=== PATIENT | female | born 1955 | race Caucasian/White ===

== ENCOUNTER 2018-09-21 08:54 | Outpatient (CLI) | payer OTHER ==
[~2018-09-21 08:54] MED LIST: ALBU8.5H8 IH; CHOL100010 PO; ESTR2TAB PO; FLUO20CA39 PO; LEVO88TA28 PO; LISI-644 PO
== END 2018-09-21 23:59 | disposition home or self-care (01) ==
LOC: RAD 08:54
PROVIDERS: ATTEND Orthopaedic Surgery
DX: S83.411A Sprain of medial collateral ligament of right knee, initial encounter (principal); M71.21 Synovial cyst of popliteal space [Baker], right knee; M25.461 Effusion, right knee; I10 Essential (primary) hypertension; X58.XXXA Exposure to other specified factors, initial encounter; Y93.89 Activity, other specified; Y92.89 Other specified places as the place of occurrence of the external cause; Y99.8 Other external cause status
CPT/HCPCS: 73721

== ENCOUNTER 2018-12-01 10:48 | Inpatient (IN) | payer OTHER ==
[2018-11-23 16:13] LABS: BASOPHILS # (AUTO) 0.1 X10'3 (0-0.2); BASOPHILS % (AUTO) 0.6 % (0-1); EOSINOPHILS # (AUTO) 0.5 X10'3 (0-0.9); EOSINOPHILS % (AUTO) 5.3 % (0-6); LYMPHOCYTES # (AUTO) 2.6 X10'3 (1.1-4.8); LYMPHOCYTES % (AUTO) 27.8 % (21-51); MEAN CORPUSCULAR HEMOGLOBIN 29.1 PG (27.0-31.0); MEAN CORPUSCULAR HGB CONC 33.2 g/dL (33.0-36.5); MEAN CORPUSCULAR VOLUME 87.8 FL (78-98); MEAN PLATELET VOLUME 7.9 FL (7.4-10.4); MONOCYTES # (AUTO) 0.6 X10'3 (0-0.9); MONOCYTES % (AUTO) 6.7 % (2-12); NEUTROPHILS # (AUTO) 5.7 X10'3 (1.8-7.7); NEUTROPHILS % (AUTO) 59.6 % (42-75); PRE OP HEMOGLOBIN 13.6 g/dL (12.0-16.0); PRE OP PLATELET COUNT 388 X10'3 (140-440); RED BLOOD COUNT 4.67 X10'6 (4.20-5.60)
[2018-11-23 16:30] LABS: ALBUMIN 3.2 G/DL (3.4-5.0); ALBUMIN/GLOBULIN RATIO 0.9 (1.1-1.5); ALKALINE PHOSPHATASE 89 IU/L (46-116); BLOOD UREA NITROGEN 16 MG/DL (7-18); BUN/CREATININE RATIO 18.2 (6.6-38.0); CALCIUM 10.2 MG/DL (8.5-10.1); CHLORIDE 105 MMOL/L (99-107); CREATININE 0.88 MG/DL (0.40-0.90); PRE OP ALT 20 U/L (30-65); PRE OP ANION GAP 8 (8-16); PRE OP AST 12 U/L (10-37); PRE OP BILIRUB, TOTAL 0.1 MG/DL (0.0-1.0); PRE OP GLUCOSE 94 MG/DL (70-104); PRE OP POTASSIUM 3.6 MMOL/L (3.4-5.1); PRE OP SODIUM 139 MMOL/L (135-145); TOTAL CARBON DIOXIDE 25.7 MMOL/L (24-32); TOTAL PROTEIN 6.7 G/DL (6.4-8.2); eGFR 65 ML/MIN
[~2018-12-01] VITALS: Ht 157.5 cm; Wt 101.0 kg
[~2018-12-01 10:48] MED LIST changes: -ALBU8.5H8 IH; +BUPR300T53 PO; -CHOL100010 PO; -FLUO20CA39 PO; +acetaminophen 325mg tablet PO ONE; +cefazolin/dext.iso 2gm/100 ML IV ONE; +famotidine 20mg tablet PO ONE; +gabapentin 300mg capsule PO ONE; +metoclopramide 5 mg/ml inj IV ONE; +oxyCODONE SR 10mg (sust. release) tab -2 tabs (20mg) PO ONE; +ringers solution, lacted 1,000 ML IV SCH; +tranexamic acid inj. 1,000 MG in normal saline 100 ML IV ONE; +vancomycin inj 1,500 MG in normal saline 300ml IV soln IV ONE
[2018-12-01] MEDS ORDERED: LIDOcaine 1% (10mg/ml) 2ml vial ONE (11:24)
[2018-12-01] MEDS ORDERED: ceFAZolin 1000mg inj ONE (13:07)
[2018-12-01] MEDS ORDERED: vancomycin 1,000mg inj ONE (13:07)
[2018-12-01 13:44] VITALS: BP 139/85
[2018-12-01 13:51] VITALS: BP 139/85
== END 2018-12-01 14:00 | disposition home or self-care (01) | DRG 554 ==
LOC: PAS IN 10:48 → EDSTATUS 13:00
PROVIDERS: ADMIT Orthopaedic Surgery; ATTEND Orthopaedic Surgery
DX: M17.12 Unilateral primary osteoarthritis, left knee (principal); Z53.8 Procedure and treatment not carried out for other reasons
CPT/HCPCS: 36415; 80053; 82948; 84443; 85025; 93005; J0690; J2765; J3370; J3490; J7030; J7120

== ENCOUNTER 2019-06-10 14:05 | Emergency (ER) | payer OTHER ==
[~2019-06-10] VITALS: Ht 157.5 cm; Wt 100.0 kg
[~2019-06-10 14:05] MED LIST changes: -acetaminophen 325mg tablet PO ONE; -cefazolin/dext.iso 2gm/100 ML IV ONE; -famotidine 20mg tablet PO ONE; -gabapentin 300mg capsule PO ONE; -metoclopramide 5 mg/ml inj IV ONE; -oxyCODONE SR 10mg (sust. release) tab -2 tabs (20mg) PO ONE; -ringers solution, lacted 1,000 ML IV SCH; -tranexamic acid inj. 1,000 MG in normal saline 100 ML IV ONE; -vancomycin inj 1,500 MG in normal saline 300ml IV soln IV ONE
[2019-06-10 14:14] VITALS: BP 125/80
[2019-06-10] MEDS ORDERED: LIDOcaine 5% patch TP ONE (14:35)
[2019-06-10] MEDS ORDERED: acetaminophen 325mg tablet PO ONE (14:35)
[2019-06-10] MEDS ORDERED: OXYC-145 PO (14:58)
[2019-06-10] MEDS ORDERED: CYCL-1 PO (14:58)
== END 2019-06-10 15:15 | disposition home or self-care (01) ==
LOC: ER 14:06
DX: M54.5 Low back pain (principal); G89.29 Other chronic pain; E78.00 Pure hypercholesterolemia, unspecified; I10 Essential (primary) hypertension; F41.9 Anxiety disorder, unspecified; F32.9 Major depressive disorder, single episode, unspecified; Z90.710 Acquired absence of both cervix and uterus; Z98.890 Other specified postprocedural states; Z88.2 Allergy status to sulfonamides; Z88.5 Allergy status to narcotic agent; Z79.899 Other long term (current) drug therapy; W07.XXXA Fall from chair, initial encounter; Y93.89 Activity, other specified; Y92.89 Other specified places as the place of occurrence of the external cause; Y99.8 Other external cause status
CPT/HCPCS: 72100; 99284

== ENCOUNTER 2019-10-18 03:52 | Emergency (ER) | payer OTHER ==
[~2019-10-18] VITALS: Ht 157.5 cm; Wt 90.9 kg
[~2019-10-18 03:52] MED LIST changes: +CYCL-1 PO; +OXYC-145 PO
[2019-10-18 03:59] VITALS: BP 137/60
[2019-10-18] MEDS ORDERED: ipratropium/albuterol 3ml nebule NEB ONE (04:00)
[2019-10-18] MEDS ORDERED: PRED20TA PO (04:10)
[2019-10-18] MEDS ORDERED: predniSONE 20 mg tablet PO ONE (04:10)
== END 2019-10-18 04:41 | disposition home or self-care (01) ==
LOC: ER 03:53
DX: J40 Bronchitis, not specified as acute or chronic (principal); E78.00 Pure hypercholesterolemia, unspecified; I10 Essential (primary) hypertension; G89.29 Other chronic pain; Z98.890 Other specified postprocedural states; Z90.710 Acquired absence of both cervix and uterus; Z88.6 Allergy status to analgesic agent; Z88.2 Allergy status to sulfonamides; Z88.5 Allergy status to narcotic agent; Z79.899 Other long term (current) drug therapy
CPT/HCPCS: 94640; 99284; J7512; 94760

== ENCOUNTER 2019-11-22 09:19 | Outpatient (CLI) | payer OTHER ==
[2019-11-22 10:28] LABS: BASOPHILS % (AUTO) 0.3 % (0-1); EOSINOPHILS # (AUTO) 0.2 X10'3 (0-0.9); EOSINOPHILS % (AUTO) 2.8 % (0-6); HEMATOCRIT 37.5 % (35.0-45.0); HEMOGLOBIN 12.5 g/dl (12.0-16.0); LYMPHOCYTES # (AUTO) 3.2 X10'3 (1.1-4.8); LYMPHOCYTES % (AUTO) 44.1 % (21-51); MEAN CORPUSCULAR HEMOGLOBIN 28.6 PG (27.0-31.0); MEAN CORPUSCULAR HGB CONC 33.3 g/dL (33.0-36.5); MEAN CORPUSCULAR VOLUME 85.8 FL (78-98); MEAN PLATELET VOLUME 7.4 FL (7.4-10.4); MONOCYTES # (AUTO) 0.5 X10'3 (0-0.9); MONOCYTES % (AUTO) 6.4 % (2-12); NEUTROPHILS # (AUTO) 3.4 X10'3 (1.8-7.7); NEUTROPHILS % (AUTO) 46.4 % (42-75); PLATELET COUNT 328 X10'3 (140-440); RED BLOOD COUNT 4.37 X10'6 (4.20-5.60); RED CELL DISTRIBUTION WIDTH 15.3 % (11.5-14.5); WHITE BLOOD COUNT 7.2 X10'3 (4.5-11.0)
[2019-11-22 10:48] LABS: ALANINE AMINOTRANSFERASE 19 U/L (12-78); ALBUMIN 3.1 G/DL (3.4-5.0); ALBUMIN/GLOBULIN RATIO 0.9 (1.1-1.5); ALKALINE PHOSPHATASE 82 IU/L (46-116); ANION GAP 5 (8-16); ASPARTATE AMINO TRANSFERASE 16 U/L (10-37); BILIRUBIN,TOTAL 0.2 MG/DL (0.1-1.0); BLOOD UREA NITROGEN 17 MG/DL (7-18); BUN/CREATININE RATIO 20.5 (6.6-38.0); CALCIUM 9.3 MG/DL (8.5-10.1); CHLORIDE 107 MMOL/L (99-107); CREATININE 0.83 MG/DL (0.40-0.90); GLUCOSE 90 MG/DL (70-104); POTASSIUM 3.7 MMOL/L (3.5-5.1); SODIUM 140 MMOL/L (135-145); TOTAL CARBON DIOXIDE 27.7 MMOL/L (24-32); TOTAL PROTEIN 6.5 G/DL (6.4-8.2); eGFR 69 ML/MIN
== END 2019-11-22 23:59 | disposition home or self-care (01) ==
LOC: LAB 09:19
DX: J90 Pleural effusion, not elsewhere classified (principal)
CPT/HCPCS: 36415; 71046; 80053; 85025; 87502; 87503

== ENCOUNTER 2019-12-19 09:24 | Outpatient (CLI) | payer OTHER | END 2019-12-19 23:59 | disposition home or self-care (01) | LOC: CARD DIAG 09:24 | DX: Z01.810 Encounter for preprocedural cardiovascular examination (principal); R06.02 Shortness of breath; R07.9 Chest pain, unspecified | CPT/HCPCS: 93005; 93306 ==

== ENCOUNTER 2020-06-29 08:50 | Emergency (ER) | payer BC ==
[~2020-06-29] VITALS: Ht 157.5 cm; Wt 90.9 kg
[2020-06-29] MEDS ORDERED: normal saline 1000ML IV soln IV ONE (09:10)
[2020-06-29] MEDS ORDERED: ipratropium/albuterol 3ml nebule NEB ONE (09:10)
[2020-06-29] MEDS ORDERED: methylPREDNISolone sod succ 125mg/2ml vial IV ONE (09:10)
[2020-06-29 09:58] LABS: BASOPHILS # (AUTO) 0.1 X10'3 (0-0.2); EOSINOPHILS # (AUTO) 0.1 X10'3 (0-0.9); EOSINOPHILS % (AUTO) 1.4 % (0-6); HEMATOCRIT 41.3 % (35.0-45.0); HEMOGLOBIN 14.3 g/dl (12.0-16.0); LYMPHOCYTES # (AUTO) 2.5 X10'3 (1.1-4.8); LYMPHOCYTES % (AUTO) 25.6 % (21-51); MEAN CORPUSCULAR HEMOGLOBIN 30.2 PG (27.0-31.0); MEAN CORPUSCULAR HGB CONC 34.6 g/dL (33.0-36.5); MEAN CORPUSCULAR VOLUME 87.1 FL (78-98); MEAN PLATELET VOLUME 8.4 FL (7.4-10.4); MONOCYTES # (AUTO) 1.1 X10'3 (0-0.9); MONOCYTES % (AUTO) 10.8 % (2-12); NEUTROPHILS % (AUTO) 61.2 % (42-75); PLATELET COUNT 376 X10'3 (140-440); RED BLOOD COUNT 4.75 X10'6 (4.20-5.60); RED CELL DISTRIBUTION WIDTH 13.4 % (11.5-14.5); WHITE BLOOD COUNT 9.8 X10'3 (4.5-11.0)
[2020-06-29 11:37] VITALS: BP 149/79
[2020-06-29 11:55] LABS: ALANINE AMINOTRANSFERASE 19 U/L (12-78); ALBUMIN 3.4 G/DL (3.4-5.0); ALBUMIN/GLOBULIN RATIO 0.9 (1.1-1.5); ALKALINE PHOSPHATASE 108 IU/L (46-116); ANION GAP 9 (8-16); ASPARTATE AMINO TRANSFERASE 14 U/L (10-37); BILIRUBIN,TOTAL 0.3 MG/DL (0.1-1.0); BLOOD UREA NITROGEN 7 MG/DL (7-18); BUN/CREATININE RATIO 7.5 (6.6-38.0); CALCIUM 9.4 MG/DL (8.5-10.1); CHLORIDE 105 MMOL/L (99-107); CREATININE 0.93 MG/DL (0.40-0.90); GLUCOSE 98 MG/DL (70-104); POTASSIUM 3.9 MMOL/L (3.5-5.1); SODIUM 138 MMOL/L (135-145); TOTAL CARBON DIOXIDE 24.4 MMOL/L (24-32); eGFR 61 ML/MIN
[2020-06-29 12:04] LABS: MAGNESIUM 1.9 MG/DL (1.5-2.4); TROPONIN I < 0.04 NG/ML (0.0-0.05)
[2020-06-29] MEDS ORDERED: BENZ-16 PO (12:28)
[2020-06-29] MEDS ORDERED: AZIT-63 PO (12:28)
== END 2020-06-29 12:40 | disposition home or self-care (01) ==
LOC: ER 08:50
DX: B34.9 Viral infection, unspecified (principal); Z20.828 Contact with and (suspected) exposure to other viral communicable diseases; E78.00 Pure hypercholesterolemia, unspecified; I10 Essential (primary) hypertension; G89.29 Other chronic pain; J45.909 Unspecified asthma, uncomplicated; Z88.6 Allergy status to analgesic agent; Z88.2 Allergy status to sulfonamides; Z88.5 Allergy status to narcotic agent; Z79.899 Other long term (current) drug therapy; Z98.890 Other specified postprocedural states; Z79.2 Long term (current) use of antibiotics
CPT/HCPCS: 36415; 71045; 80053; 83605; 83735; 83880; 84145; 84484; 85025; 87040; 87635; 93005; 94640; 96374; 99285; J2930; J7030; 94760; 96361

== ENCOUNTER 2020-08-13 08:51 | Outpatient (CLI) | payer BC ==
[2020-08-13 09:29] LABS: CLARITY,URINE CLOUDY (Clear); COLOR,URINE YELLOW (Yellow); GLUCOSE, URINE NEGATIVE (Neg); KETONES,URINE NEGATIVE (Neg); LEUKOCYTE ESTERASE ,URINE NEGATIVE (Neg); NITRITES, URINE NEGATIVE (Neg); OCCULT BLOOD,URINE SMALL (Neg); PH,URINE 5.5 (4.8-8.0); PROTEIN,URINE NEGATIVE (Neg); UROBILINOGEN,URINE 0.2 E.U/dL (0.2-1.0)
[2020-08-13 09:32] LABS: UA COLLECTION TYPE CLN CATCH MIDSTREAM
[2020-08-13 09:43] LABS: BACTERIA,URINE 1+ /HPF (Neg); HYALINE CASTS 0-3 /LPF (NEGATIVE); MUCUS STRANDS MANY /LPF (Neg); RBC,URINE 0-2 /HPF (0-2); SQUAMOUS EPITHELIAL CELL,UR MANY /LPF (FEW); WBC,URINE 0-4 /HPF (0-4)
[2020-08-13 09:47] LABS: % IRON SATURATION 26 % (11-46); IRON 104 UG/DL (49-151); TOTAL IRON BINDING CAPACITY 400 UG/DL (259-388)
[2020-08-13 09:53] LABS: CHOL/HDL RATIO 3.3 (0.00-4.99); CHOLESTEROL 223 MG/DL (0-200); HDL CHOLESTEROL 68 MG/DL (35-60); LDL CHOLESTEROL 127 MG/DL (50-100); TRIGLYCERIDES 159 MG/DL (20-135)
== END 2020-08-13 23:59 | disposition home or self-care (01) ==
LOC: LAB 08:51
PROVIDERS: ATTEND Family Medicine
DX: I10 Essential (primary) hypertension (principal); E03.9 Hypothyroidism, unspecified; R06.02 Shortness of breath
CPT/HCPCS: 36415; 80061; 81001; 82306; 82607; 82746; 83540; 83550; 84439; 84443

== ENCOUNTER 2020-08-27 08:03 | Outpatient (CLI) | payer BC | END 2020-08-27 23:59 | disposition home or self-care (01) | LOC: RT 08:03 | PROVIDERS: ATTEND Family Medicine | DX: R06.02 Shortness of breath (principal) | CPT/HCPCS: 94010; 94727; 94729 ==

== ENCOUNTER 2020-11-25 21:26 | Emergency (ER) | payer BC ==
[~2020-11-25] VITALS: Ht 157.5 cm; Wt 100.0 kg
[2020-11-25 21:28] VITALS: BP 163/80
[2020-11-25] MEDS ORDERED: CYCL-1 PO (22:11)
[2020-11-25] MEDS ORDERED: LIDOcaine 5% patch TP SCH (22:24)
[2020-11-25] MEDS ORDERED: ondansetron 4mg rapidly disintigrating tab PO ONE (22:25)
== END 2020-11-25 22:42 | disposition home or self-care (01) ==
LOC: ER 21:26
DX: S39.012A Strain of muscle, fascia and tendon of lower back, initial encounter (principal); E78.00 Pure hypercholesterolemia, unspecified; I10 Essential (primary) hypertension; E07.9 Disorder of thyroid, unspecified; G89.29 Other chronic pain; Z98.891 History of uterine scar from previous surgery; Z90.710 Acquired absence of both cervix and uterus; Z88.2 Allergy status to sulfonamides; Z88.8 Allergy status to other drugs, medicaments and biological substances; Z79.899 Other long term (current) drug therapy; X50.0XXA Overexertion from strenuous movement or load, initial encounter; Y93.89 Activity, other specified; Y92.89 Other specified places as the place of occurrence of the external cause; Y99.8 Other external cause status
CPT/HCPCS: 99283

== ENCOUNTER 2021-04-10 17:02 | Observation (INO) | payer BC, OTHER ==
[~2021-04-10] VITALS: Ht 157.5 cm; Wt 94.5 kg
[2021-04-10] MEDS ORDERED: ipratropium/albuterol 3ml nebule NEB ONE (17:15)
[2021-04-10] MEDS ORDERED: dexamethasone sod phosphate 10mg/ml inj IV STA (17:15)
[2021-04-10 17:38] LABS: BASOPHILS # (AUTO) 0.1 X10'3 (0-0.2); BASOPHILS % (AUTO) 0.9 % (0-1); EOSINOPHILS % (AUTO) 11.7 % (0-6); HEMOGLOBIN 13.7 g/dl (12.0-16.0); LYMPHOCYTES # (AUTO) 3.2 X10'3 (1.1-4.8); LYMPHOCYTES % (AUTO) 37.1 % (21-51); MEAN CORPUSCULAR HEMOGLOBIN 29.4 PG (27.0-31.0); MEAN CORPUSCULAR HGB CONC 34.1 g/dL (33.0-36.5); MEAN CORPUSCULAR VOLUME 86.3 FL (78-98); MEAN PLATELET VOLUME 7.7 FL (7.4-10.4); MONOCYTES # (AUTO) 0.7 X10'3 (0-0.9); MONOCYTES % (AUTO) 7.6 % (2-12); NEUTROPHILS # (AUTO) 3.7 X10'3 (1.8-7.7); NEUTROPHILS % (AUTO) 42.7 % (42-75); PLATELET COUNT 337 X10'3 (140-440); RED BLOOD COUNT 4.64 X10'6 (4.20-5.60); RED CELL DISTRIBUTION WIDTH 13.2 % (11.5-14.5); WHITE BLOOD COUNT 8.6 X10'3 (4.5-11.0)
[2021-04-10 17:51] LABS: D-DIMER 0.54 MG/L FEU (0-0.50)
[2021-04-10 17:54] LABS: ALANINE AMINOTRANSFERASE 30 U/L (12-78); ALBUMIN 3.5 G/DL (3.4-5.0); ANION GAP 7 (8-16); ASPARTATE AMINO TRANSFERASE 21 U/L (10-37); BILIRUBIN,TOTAL 0.2 MG/DL (0.1-1.0); BLOOD UREA NITROGEN 10 MG/DL (7-18); CALCIUM 10.3 MG/DL (8.5-10.1); CHLORIDE 105 MMOL/L (99-107); CREATININE 0.83 MG/DL (0.40-0.90); GLUCOSE 94 MG/DL (70-104); POTASSIUM 4.7 MMOL/L (3.5-5.1); SODIUM 142 MMOL/L (135-145); TOTAL CARBON DIOXIDE 30.1 MMOL/L (24-32); eGFR 69 ML/MIN
[2021-04-10 17:55] LABS: ALKALINE PHOSPHATASE 99 IU/L (46-116)
--- NOTE | 2021-04-10 20:18 | NUR ---
PT CURRENTLY WORKS UPSTAIRS IN COVID UNIT. CAME IN DUE TO HTN AND SOB. SHE BELIEVES ITS THE SMOKE. WHEEZING THROUGHOUT. PT WAS TESTED FOR COVID LAST WEEK W/ NEG RESULT.
[2021-04-10] MEDS ORDERED: iohexol 350MG/ML 100ml bottle IV ONE (21:36)
[2021-04-10] MEDS ORDERED: labetalol 20mg/4ml (5mg/ml) syringe IV ONE (22:25)
[2021-04-10] MEDS ORDERED: aspirin 81mg tab.chew PO ONE (23:00)
[2021-04-11] VITALS (12 sets, daily range): BP systolic 120–172; BP diastolic 69–99
[2021-04-11] MEDS ORDERED: predniSONE 20 mg tablet PO ONE (01:20)
[2021-04-11] MEDS ORDERED: ipratropium/albuterol 3ml nebule NEB ONE (01:20)
[2021-04-11] MEDS ORDERED: ipratropium/albuterol 3ml nebule ONE (01:38)
[2021-04-11] MEDS ORDERED: magnesium hydroxide 30ml (MOM) UD suspension PO PRN (02:25)
[2021-04-11] MEDS ORDERED: mag hydrox/Alum hydrox/simeth 30ml oral suspension PO PRN (02:25)
[2021-04-11] MEDS ORDERED: ondansetron/PF 4mg/2ml inj IV PRN (02:25)
[2021-04-11] MEDS ORDERED: acetaminophen 325mg tablet PO PRN (02:25)
[2021-04-11] MEDS ORDERED: nitroGLYCERIN 0.4mg SUBLingual tab SL PRN (03:35)
[2021-04-11] MEDS ORDERED: metoprolol tartrate 1mg/ml inj IV PRN (03:35)
[2021-04-11] MEDS ORDERED: regadenoson 0.4mg/5ml syringe IV PRN (03:35)
[2021-04-11] MEDS ORDERED: aminophylline 250mg/10ml inj. IV PRN (03:35)
--- NOTE | 2021-04-11 04:00 | NUR ---
I have received report from Daniel BALDWIN by telephone from ER and had the opportunity to ask questions and assume patient care once on the unit.
--- NOTE | 2021-04-11 04:20 | NUR ---
Patient refused No 2 RN skin check, no DART, no MRSA swab. She agreed to the telemetry monitoring and the Piedad exam in the AM. Will continue to monitor and pass onto day shift.
[2021-04-11] MEDS ORDERED: amLODIPine 2.5mg tablet PO ONE ×2 (04:35→19:00)
--- NOTE | 2021-04-11 06:00 | NUR ---
Problems reprioritized. Patient report given, questions answered & plan of care reviewed with Chayo BALDWIN.
[2021-04-11 06:13] LABS: BASOPHILS % (AUTO) 0.3 % (0-1); EOSINOPHILS # (AUTO) 0.2 X10'3 (0-0.9); EOSINOPHILS % (AUTO) 1.7 % (0-6); HEMATOCRIT 39.6 % (35.0-45.0); HEMOGLOBIN 13.3 g/dl (12.0-16.0); LYMPHOCYTES # (AUTO) 1.3 X10'3 (1.1-4.8); LYMPHOCYTES % (AUTO) 13.3 % (21-51); MEAN CORPUSCULAR HEMOGLOBIN 29.3 PG (27.0-31.0); MEAN CORPUSCULAR HGB CONC 33.5 g/dL (33.0-36.5); MEAN CORPUSCULAR VOLUME 87.7 FL (78-98); MEAN PLATELET VOLUME 8.5 FL (7.4-10.4); MONOCYTES # (AUTO) 0.1 X10'3 (0-0.9); MONOCYTES % (AUTO) 1.4 % (2-12); NEUTROPHILS # (AUTO) 8.2 X10'3 (1.8-7.7); NEUTROPHILS % (AUTO) 83.3 % (42-75); PLATELET COUNT 301 X10'3 (140-440); RED BLOOD COUNT 4.52 X10'6 (4.20-5.60); RED CELL DISTRIBUTION WIDTH 13.5 % (11.5-14.5); WHITE BLOOD COUNT 9.9 X10'3 (4.5-11.0)
[2021-04-11 06:24] LABS: ALANINE AMINOTRANSFERASE 28 U/L (12-78); ALBUMIN 3.5 G/DL (3.4-5.0); ALKALINE PHOSPHATASE 103 IU/L (46-116); ANION GAP 9 (8-16); ASPARTATE AMINO TRANSFERASE 26 U/L (10-37); BILIRUBIN,TOTAL 0.3 MG/DL (0.1-1.0); BLOOD UREA NITROGEN 10 MG/DL (7-18); BUN/CREATININE RATIO 11.1 (6.6-38.0); CALCIUM 9.7 MG/DL (8.5-10.1); CHLORIDE 104 MMOL/L (99-107); GLUCOSE 142 MG/DL (70-104); SODIUM 139 MMOL/L (135-145); TOTAL CARBON DIOXIDE 25.9 MMOL/L (24-32); TOTAL PROTEIN 6.9 G/DL (6.4-8.2); eGFR 63 ML/MIN
[2021-04-11] MEDS: docusate sod 100mg capsule PO SCH ×2 (08:00→19:10)
[2021-04-11] MEDS: heparin, porcine 5000 units/ml vial SQ SCH ×2 (08:00→19:10)
[2021-04-11] MEDS ORDERED: ipratropium/albuterol 3ml nebule NEB PRN (09:40)
[2021-04-11] MEDS: ipratropium/albuterol 3ml nebule NEB SCH ×4 (11:00→22:59)
[2021-04-11] MEDS ORDERED: regadenoson 0.4mg/5ml syringe IV ONE (11:00)
[2021-04-11] MEDS ORDERED: BUPR300T86 PO (11:32)
[2021-04-11] MEDS ORDERED: SUMA100T16 PO (11:32)
[2021-04-11] MEDS ORDERED: ESTR2TAB6 PO (11:32)
[2021-04-11] MEDS ORDERED: FLUO-211 PO (11:32)
[2021-04-11] MEDS ORDERED: LOSA50TA64 PO (11:32)
[2021-04-11] MEDS ORDERED: LEVO88TA7 PO (11:32)
[2021-04-11] MEDS: methylPREDNISolone sod succ/PF 40mg inj. IV SCH ×2 (14:05→19:05)
[2021-04-11] MEDS: estradiol 1mg tablet PO SCH (14:07)
[2021-04-11] MEDS ORDERED: losartan 50mg tablet PO STA (16:44)
--- NOTE | 2021-04-11 18:20 | NUR ---
MD Barcenas called for pt elevated blood pressure 172/82 telephone order of 2.5 mg Norvasc tab PO once
--- NOTE | 2021-04-11 18:44 | NUR ---
Patient in room PCU 3024. I have received report from Saul BALDWIN and had the opportunity to ask questions and assume patient care.
[2021-04-11] MEDS: buPROPion SR 150mg tablet PO SCH (19:10)
[2021-04-12] MEDS: methylPREDNISolone sod succ/PF 40mg inj. IV SCH ×2 (01:09→09:42)
[2021-04-12 02:00] VITALS: BP 129/75
[2021-04-12] MEDS: ipratropium/albuterol 3ml nebule NEB SCH ×3 (03:20→11:31)
[2021-04-12 06:00] VITALS: BP 154/74
--- NOTE | 2021-04-12 06:31 | NUR ---
Problems reprioritized. Patient report given, questions answered & plan of care reviewed with Rani BALDWIN.
[2021-04-12 06:37] LABS: BASOPHILS % (AUTO) 0.2 % (0-1); EOSINOPHILS % (AUTO) 0 % (0-6); HEMATOCRIT 37.9 % (35.0-45.0); HEMOGLOBIN 12.8 g/dl (12.0-16.0); LYMPHOCYTES # (AUTO) 0.6 X10'3 (1.1-4.8); LYMPHOCYTES % (AUTO) 4.1 % (21-51); MEAN CORPUSCULAR HEMOGLOBIN 29.5 PG (27.0-31.0); MEAN CORPUSCULAR HGB CONC 33.9 g/dL (33.0-36.5); MEAN CORPUSCULAR VOLUME 87.1 FL (78-98); MEAN PLATELET VOLUME 8.6 FL (7.4-10.4); MONOCYTES # (AUTO) 0.2 X10'3 (0-0.9); MONOCYTES % (AUTO) 1.6 % (2-12); NEUTROPHILS # (AUTO) 13.3 X10'3 (1.8-7.7); NEUTROPHILS % (AUTO) 94.1 % (42-75); PLATELET COUNT 322 X10'3 (140-440); RED BLOOD COUNT 4.35 X10'6 (4.20-5.60); RED CELL DISTRIBUTION WIDTH 13.4 % (11.5-14.5); WHITE BLOOD COUNT 14.1 X10'3 (4.5-11.0)
--- NOTE | 2021-04-12 06:37 | NUR ---
Patient in room PCU 3024. I have received report from Dane BALDWIN and had the opportunity to ask questions and assume patient care.
[2021-04-12] MEDS ORDERED: levoTHYROXINE 88mcg tablet PO SCH (07:00)
[2021-04-12 07:03] LABS: ALANINE AMINOTRANSFERASE 24 U/L (12-78); ALBUMIN 3.1 G/DL (3.4-5.0); ALBUMIN/GLOBULIN RATIO 0.9 (1.1-1.5); ALKALINE PHOSPHATASE 91 IU/L (46-116); ANION GAP 15 (8-16); ASPARTATE AMINO TRANSFERASE 17 U/L (10-37); BILIRUBIN,TOTAL 0.2 MG/DL (0.1-1.0); BLOOD UREA NITROGEN 16 MG/DL (7-18); BUN/CREATININE RATIO 15.8 (6.6-38.0); CALCIUM 9.6 MG/DL (8.5-10.1); CHLORIDE 106 MMOL/L (99-107); CREATININE 1.01 MG/DL (0.40-0.90); GLUCOSE 178 MG/DL (70-104); POTASSIUM 3.5 MMOL/L (3.5-5.1); SODIUM 144 MMOL/L (135-145); TOTAL CARBON DIOXIDE 22.7 MMOL/L (24-32); TOTAL PROTEIN 6.5 G/DL (6.4-8.2); eGFR 55 ML/MIN
[2021-04-12] MEDS: buPROPion SR 150mg tablet PO SCH (08:00)
[2021-04-12] MEDS: estradiol 1mg tablet PO SCH (08:00)
[2021-04-12] MEDS: docusate sod 100mg capsule PO SCH (08:00)
[2021-04-12] MEDS ORDERED: losartan 50mg tablet PO SCH (08:00)
[2021-04-12] MEDS ORDERED: FLUoxetine 20mg capsule PO SCH (08:00)
[2021-04-12] MEDS ORDERED: levoFLOXACIN-Levaquin 500mg/D5 100 ML IV SCH (08:00)
[2021-04-12] MEDS: heparin, porcine 5000 units/ml vial SQ SCH (09:43)
[2021-04-12 11:00] VITALS: BP 126/76
[2021-04-12] MEDS ORDERED: LEVO500T89 PO (11:39)
[2021-04-12] MEDS ORDERED: IPRA3AMP9 NEB (11:39)
[2021-04-12] MEDS ORDERED: PRED20TA PO (11:39)
--- NOTE | 2021-04-12 13:57 | NUR ---
Patient safe for discharge per providers orders. Medications and discharge instructions discussed. PIV discontinued, cannula intact. Telemetry discontinued. Belongings sent with patient. Patient wheeled to lobby via nursing staff.
== END 2021-04-12 14:52 | disposition home or self-care (01) ==
LOC: ER 17:03 → ED HOLD 04-11 02:27 → PCU 3S 04-11 04:05
PROVIDERS: ADMIT Internal Medicine; ATTEND Family Medicine
DX: J96.01 Acute respiratory failure with hypoxia (principal); Z20.822 Contact with and (suspected) exposure to COVID-19; E03.9 Hypothyroidism, unspecified; I21.4 Non-ST elevation (NSTEMI) myocardial infarction; E78.00 Pure hypercholesterolemia, unspecified; E11.9 Type 2 diabetes mellitus without complications; I10 Essential (primary) hypertension; G89.29 Other chronic pain; F41.9 Anxiety disorder, unspecified; F32.9 Major depressive disorder, single episode, unspecified; Z90.710 Acquired absence of both cervix and uterus; Z88.6 Allergy status to analgesic agent; Z88.2 Allergy status to sulfonamides; Z88.5 Allergy status to narcotic agent; Z79.899 Other long term (current) drug therapy
CPT/HCPCS: 36415; 71045; 71275; 78452; 80053; 83880; 83970; 84439; 84443; 84484; 85025; 85379; 87635; 93005; 93017; 93306; 94640; 94760; 96365; 96375; 96376; 99285; A9500; C9803; G0378; J1644; J1956; J2785; J2920; J7512; Q9967; J3490

== ENCOUNTER 2021-07-31 18:35 | Emergency (ER) | payer BC, OTHER ==
[~2021-07-31] VITALS: Ht 157.5 cm; Wt 93.2 kg
[~2021-07-31 18:35] MED LIST changes: -BUPR300T53 PO; +BUPR300T86 PO; -CYCL-1 PO; -ESTR2TAB PO; +ESTR2TAB6 PO; +FLUO-211 PO; +IPRA3AMP9 NEB; -LEVO88TA28 PO; +LEVO88TA7 PO; -LISI-644 PO; +LOSA50TA64 PO; -OXYC-145 PO; +SUMA100T16 PO
[2021-07-31 18:58] VITALS: BP 185/105
[2021-07-31] MEDS ORDERED: morphine 2 MG/ML inj. syringe IM ONE (19:00)
[2021-07-31] MEDS ORDERED: ondansetron 4mg rapidly disintigrating tab PO ONE (19:00)
[2021-07-31] MEDS ORDERED: cyclobenzaprine 10mg tablet PO ONE (20:05)
[2021-07-31] MEDS ORDERED: CYCL-1 PO (20:07)
== END 2021-07-31 21:07 | disposition home or self-care (01) ==
LOC: ER 18:35
DX: S00.93XA Contusion of unspecified part of head, initial encounter (principal); E78.00 Pure hypercholesterolemia, unspecified; I10 Essential (primary) hypertension; G89.29 Other chronic pain; M54.9 Dorsalgia, unspecified; F41.9 Anxiety disorder, unspecified; F32.9 Major depressive disorder, single episode, unspecified; Z88.6 Allergy status to analgesic agent; Z88.2 Allergy status to sulfonamides; Z88.5 Allergy status to narcotic agent; Z88.8 Allergy status to other drugs, medicaments and biological substances; W19.XXXA Unspecified fall, initial encounter; Y93.89 Activity, other specified; Y92.89 Other specified places as the place of occurrence of the external cause; Y99.8 Other external cause status
CPT/HCPCS: 70450; 72125; 93005; 96372; 99285; J2270

== ENCOUNTER 2021-09-27 14:44 | Outpatient (CLI) | payer OTHER ==
[~2021-09-27 14:44] MED LIST changes: +CYCL-1 PO
== END 2021-09-27 23:59 | disposition home or self-care (01) ==
LOC: RAD 14:44
PROVIDERS: ATTEND Family Medicine
DX: M25.512 Pain in left shoulder (principal)
CPT/HCPCS: 73030

== ENCOUNTER 2021-10-06 18:26 | Emergency (ER) | payer BC, OTHER ==
[~2021-10-06] VITALS: Ht 157.5 cm; Wt 103.0 kg
[2021-10-06] MEDS ORDERED: cyclobenzaprine 10mg tablet PO ONE (19:25)
[2021-10-06] MEDS ORDERED: acetaminophen 325mg tablet PO ONE (19:25)
[2021-10-06] MEDS ORDERED: HYDROcodone/acetaminophen 5mg/325mg tablet PO ONE (19:25)
[2021-10-06] MEDS ORDERED: ondansetron 4mg rapidly disintigrating tab PO ONE (19:25)
[2021-10-06] MEDS ORDERED: HYDR-3965 PO (19:26)
[2021-10-06] MEDS ORDERED: ONDA8TAB13 PO (19:26)
[2021-10-06] MEDS ORDERED: CYCL-1 PO (19:26)
== END 2021-10-06 19:48 | disposition home or self-care (01) ==
LOC: ER 18:28
DX: M79.604 Pain in right leg (principal); M79.605 Pain in left leg; I11.9 Hypertensive heart disease without heart failure; G89.29 Other chronic pain; M54.9 Dorsalgia, unspecified; F41.9 Anxiety disorder, unspecified; F32.9 Major depressive disorder, single episode, unspecified; E11.9 Type 2 diabetes mellitus without complications; Z88.6 Allergy status to analgesic agent; Z88.2 Allergy status to sulfonamides; Z79.899 Other long term (current) drug therapy; Z88.5 Allergy status to narcotic agent
CPT/HCPCS: 99284

== ENCOUNTER 2021-12-05 07:19 | Outpatient (CLI) | payer BC ==
[~2021-12-05 07:19] MED LIST changes: +ONDA8TAB13 PO
== END 2021-12-05 23:59 | disposition home or self-care (01) ==
LOC: RAD 07:19
PROVIDERS: ATTEND Physician Assistant
DX: M41.86 Other forms of scoliosis, lumbar region (principal)
CPT/HCPCS: 72100

== ENCOUNTER 2021-12-13 08:33 | Outpatient (CLI) | payer OTHER | END 2021-12-13 23:59 | disposition home or self-care (01) | LOC: RAD 08:33 | PROVIDERS: ATTEND Family Medicine | DX: S63.002A Unspecified subluxation of left wrist and hand, initial encounter (principal); X58.XXXA Exposure to other specified factors, initial encounter; Y93.89 Activity, other specified; Y92.89 Other specified places as the place of occurrence of the external cause; Y99.8 Other external cause status | CPT/HCPCS: 73221 ==

== ENCOUNTER 2022-01-02 08:47 | Outpatient (CLI) | payer BC | END 2022-01-02 23:59 | disposition home or self-care (01) | LOC: RAD 08:47 | PROVIDERS: ATTEND Physician Assistant | DX: M47.817 Spondylosis without myelopathy or radiculopathy, lumbosacral region (principal); M51.34 Other intervertebral disc degeneration, thoracic region; M48.07 Spinal stenosis, lumbosacral region | CPT/HCPCS: 72148 ==

== ENCOUNTER 2022-05-30 08:19 | Emergency (ER) | payer BC, OTHER ==
[~2022-05-30] VITALS: Ht 157.5 cm; Wt 111.7 kg
[2022-05-30 10:05] LABS: BASOPHILS % (AUTO) 0.5 % (0-1); EOSINOPHILS # (AUTO) 0.4 X10'3 (0-0.9); HEMATOCRIT 38.2 % (35.0-45.0); HEMOGLOBIN 13.3 g/dl (12.0-16.0); LYMPHOCYTES # (AUTO) 2.5 X10'3 (1.1-4.8); LYMPHOCYTES % (AUTO) 35.9 % (21-51); MEAN CORPUSCULAR HEMOGLOBIN 29.8 PG (27.0-31.0); MEAN CORPUSCULAR HGB CONC 34.9 g/dL (33.0-36.5); MEAN CORPUSCULAR VOLUME 85.3 FL (78-98); MEAN PLATELET VOLUME 7.4 FL (7.4-10.4); MONOCYTES # (AUTO) 0.5 X10'3 (0-0.9); MONOCYTES % (AUTO) 7.5 % (2-12); NEUTROPHILS # (AUTO) 3.4 X10'3 (1.8-7.7); NEUTROPHILS % (AUTO) 50.1 % (42-75); PLATELET COUNT 326 X10'3 (140-440); RED BLOOD COUNT 4.48 X10'6 (4.20-5.60); RED CELL DISTRIBUTION WIDTH 13.1 % (11.5-14.5); WHITE BLOOD COUNT 6.9 X10'3 (4.5-11.0)
[2022-05-30 10:14] LABS: ALANINE AMINOTRANSFERASE 16 U/L (12-78); ALBUMIN 3.1 G/DL (3.4-5.0); ALBUMIN/GLOBULIN RATIO 0.9 (1.1-1.5); ALKALINE PHOSPHATASE 96 IU/L (46-116); ANION GAP 6 (8-16); ASPARTATE AMINO TRANSFERASE 14 U/L (10-37); BILIRUBIN,TOTAL 0.2 MG/DL (0.1-1.0); BLOOD UREA NITROGEN 19 MG/DL (7-18); BUN/CREATININE RATIO 24.7 (6.6-38.0); CALCIUM 10.5 MG/DL (8.5-10.1); CHLORIDE 105 MMOL/L (99-107); CREATININE 0.77 MG/DL (0.40-0.90); GLUCOSE 108 MG/DL (70-104); POTASSIUM 3.4 MMOL/L (3.5-5.1); SODIUM 142 MMOL/L (135-145); TOTAL CARBON DIOXIDE 31.3 MMOL/L (24-32); TOTAL PROTEIN 6.6 G/DL (6.4-8.2); eGFR 75 ML/MIN
[2022-05-30] MEDS ORDERED: losartan 50mg tablet PO STA (10:36)
[2022-05-30] MEDS ORDERED: LOSA100T57 PO (10:37)
[2022-05-30] MEDS ORDERED: cloNIDine 0.1 mg tablet PO ONE (10:40)
[2022-05-30 11:52] VITALS: BP 196/114
[2022-05-30] MEDS ORDERED: HYDR12.55 PO (18:50)
== END 2022-05-30 11:54 | disposition home or self-care (01) ==
LOC: ER 08:19
DX: I10 Essential (primary) hypertension (principal); R60.9 Edema, unspecified; E83.52 Hypercalcemia; R51.9 Headache, unspecified; R06.02 Shortness of breath; E78.00 Pure hypercholesterolemia, unspecified; G89.29 Other chronic pain; F41.9 Anxiety disorder, unspecified; F32.A Depression, unspecified; Z90.710 Acquired absence of both cervix and uterus; Z95.1 Presence of aortocoronary bypass graft; Z88.2 Allergy status to sulfonamides; Z88.6 Allergy status to analgesic agent; Z88.5 Allergy status to narcotic agent; Z88.8 Allergy status to other drugs, medicaments and biological substances; Z79.899 Other long term (current) drug therapy
CPT/HCPCS: 36415; 80053; 83880; 84484; 85025; 93005; 99284

== ENCOUNTER 2022-05-30 15:41 | Emergency (ER) | payer BC ==
[~2022-05-30] VITALS: Ht 157.5 cm; Wt 111.0 kg
[~2022-05-30 15:41] MED LIST changes: +LOSA100T57 PO
[2022-05-30] MEDS ORDERED: LIDOcaine 5% patch TP STA (17:04)
[2022-05-30] MEDS ORDERED: cloNIDine 0.1 mg tablet PO STA (17:04)
[2022-05-30] MEDS ORDERED: acetaminophen 325mg tablet PO ONE (17:20)
--- NOTE | 2022-05-30 17:22 | NUR ---
PO MEDS X2 GIVEN TOPICAL PLACED
[2022-05-30] MEDS ORDERED: ondansetron 4mg rapidly disintigrating tab PO ONE (17:55)
[2022-05-30] MEDS ORDERED: HYDROcodone/acetaminophen 10/325mg tab PO ONE (18:50)
[2022-05-30] MEDS ORDERED: HYDR12.55 PO (18:50)
[2022-05-30 19:17] VITALS: BP 154/101
--- NOTE | 2022-05-30 19:17 | NUR ---
PO MED GIVEN
== END 2022-05-30 19:18 | disposition home or self-care (01) ==
LOC: ER 15:43
DX: I10 Essential (primary) hypertension (principal); E78.00 Pure hypercholesterolemia, unspecified; G89.29 Other chronic pain; M54.9 Dorsalgia, unspecified; F31.9 Bipolar disorder, unspecified; Z88.6 Allergy status to analgesic agent; Z79.899 Other long term (current) drug therapy; Z88.2 Allergy status to sulfonamides; Z88.5 Allergy status to narcotic agent
CPT/HCPCS: 99284

== ENCOUNTER 2022-06-02 16:41 | Emergency (ER) | payer BC ==
[~2022-06-02] VITALS: Ht 157.5 cm; Wt 106.0 kg
[~2022-06-02 16:41] MED LIST changes: +HYDR12.55 PO
[2022-06-02 20:10] VITALS: BP 172/70
[2022-06-02] MEDS ORDERED: ALPR-624 PO (20:46)
== END 2022-06-02 21:14 | disposition home or self-care (01) ==
LOC: EEVIPCON 20:52 → ER 20:52
DX: I10 Essential (primary) hypertension (principal); E78.00 Pure hypercholesterolemia, unspecified; G89.29 Other chronic pain; M54.9 Dorsalgia, unspecified; F31.9 Bipolar disorder, unspecified; Z88.6 Allergy status to analgesic agent; Z88.2 Allergy status to sulfonamides; Z88.5 Allergy status to narcotic agent; Z88.8 Allergy status to other drugs, medicaments and biological substances; Z79.899 Other long term (current) drug therapy
CPT/HCPCS: 93005; 99283

== ENCOUNTER 2022-06-05 11:16 | Outpatient (CLI) | payer BC ==
[~2022-06-05 11:16] MED LIST changes: +ALPR-624 PO
[2022-06-05 12:26] LABS: GLUCOSE 106 MG/DL (70-104)
[2022-06-05 12:27] LABS: ALBUMIN 3.1 G/DL (3.4-5.0); ANION GAP 6 (8-16); BLOOD UREA NITROGEN 16 MG/DL (7-18); BUN/CREATININE RATIO 19.5 (6.6-38.0); CALCIUM 9.6 MG/DL (8.5-10.1); CHLORIDE 103 MMOL/L (99-107); CREATININE 0.82 MG/DL (0.40-0.90); POTASSIUM 3.4 MMOL/L (3.5-5.1); SODIUM 141 MMOL/L (135-145); TOTAL CARBON DIOXIDE 32.3 MMOL/L (24-32); eGFR 70 ML/MIN
== END 2022-06-05 23:59 | disposition home or self-care (01) ==
LOC: LAB 11:16
PROVIDERS: ATTEND Physician Assistant
DX: I10 Essential (primary) hypertension (principal); E83.52 Hypercalcemia
CPT/HCPCS: 36415; 80048; 83970

== ENCOUNTER 2022-06-11 11:12 | Emergency (ER) | payer BC ==
[~2022-06-11] VITALS: Ht 157.5 cm; Wt 109.1 kg
[2022-06-11 12:02] LABS: BASOPHILS # (AUTO) 0.1 X10'3 (0-0.2); BASOPHILS % (AUTO) 0.6 % (0-1); EOSINOPHILS % (AUTO) 0.1 % (0-6); HEMATOCRIT 38.3 % (35.0-45.0); HEMOGLOBIN 13.6 g/dl (12.0-16.0); LYMPHOCYTES # (AUTO) 1.7 X10'3 (1.1-4.8); LYMPHOCYTES % (AUTO) 11.3 % (21-51); MEAN CORPUSCULAR HEMOGLOBIN 29.7 PG (27.0-31.0); MEAN CORPUSCULAR HGB CONC 35.6 g/dL (33.0-36.5); MEAN CORPUSCULAR VOLUME 83.4 FL (78-98); MEAN PLATELET VOLUME 8.1 FL (7.4-10.4); MONOCYTES # (AUTO) 0.5 X10'3 (0-0.9); MONOCYTES % (AUTO) 3.3 % (2-12); NEUTROPHILS # (AUTO) 12.9 X10'3 (1.8-7.7); NEUTROPHILS % (AUTO) 84.7 % (42-75); PLATELET COUNT 383 X10'3 (140-440); RED BLOOD COUNT 4.59 X10'6 (4.20-5.60); RED CELL DISTRIBUTION WIDTH 13.1 % (11.5-14.5); WHITE BLOOD COUNT 15.2 X10'3 (4.5-11.0)
[2022-06-11] MEDS ORDERED: morphine 4 MG/ML inj SYRINge IV ONE ×2 (12:05→12:55)
[2022-06-11] MEDS ORDERED: ondansetron/PF 4mg/2ml inj IV ONE (12:05)
[2022-06-11] MEDS ORDERED: normal saline 1000ML IV soln IVB ONE (12:40)
[2022-06-11 12:43] LABS: ALANINE AMINOTRANSFERASE 20 U/L (12-78); ALBUMIN 3.3 G/DL (3.4-5.0); ALBUMIN/GLOBULIN RATIO 0.9 (1.1-1.5); ALKALINE PHOSPHATASE 104 IU/L (46-116); ANION GAP 9 (8-16); ASPARTATE AMINO TRANSFERASE 17 U/L (10-37); BILIRUBIN,TOTAL 0.3 MG/DL (0.1-1.0); BLOOD UREA NITROGEN 11 MG/DL (7-18); BUN/CREATININE RATIO 13.9 (6.6-38.0); CALCIUM 10.3 MG/DL (8.5-10.1); CHLORIDE 99 MMOL/L (99-107); CREATININE 0.79 MG/DL (0.40-0.90); GLUCOSE 135 MG/DL (70-104); POTASSIUM 3.2 MMOL/L (3.5-5.1); SODIUM 137 MMOL/L (135-145); TOTAL CARBON DIOXIDE 28.7 MMOL/L (24-32); eGFR 73 ML/MIN
[2022-06-11 12:52] LABS: LIPASE 71 U/L (73-393)
[2022-06-11] MEDS ORDERED: proCHLORperazine 10 MG/2 ml inj IV ONE (12:55)
[2022-06-11] MEDS ORDERED: iohexol 350MG/ML 100ml bottle IV ONE (13:26)
--- NOTE | 2022-06-11 13:29 | NUR ---
Pt left for CT, mild distress d'/t Addendum: 06/11/22 at 1329 by [email or web address] Pt left for CT, mild distress d/t pain
--- NOTE | 2022-06-11 13:56 | NUR ---
Pt came back from CT. Drowsy but rousable
[2022-06-11] MEDS ORDERED: potassium Cl 10 mEq/100mL bag IV ONE (14:50)
[2022-06-11] MEDS ORDERED: pantoprazole 40mg Tablet.DR PO ONE (14:50)
[2022-06-11] MEDS ORDERED: LIDOcaine Viscous 15ml cup MM ONE (14:50)
[2022-06-11] MEDS ORDERED: magnesium 2GM in 50ml NS 50 ML IV ONE (14:50)
[2022-06-11] MEDS ORDERED: mag hydrox/Alum hydrox/simeth 30ml oral suspension PO ONE (14:50)
[2022-06-11] MEDS ORDERED: MAG355OR18 PO (16:01)
[2022-06-11] MEDS ORDERED: PANT20TA18 PO (16:01)
[2022-06-11] MEDS ORDERED: cloNIDine 0.1 mg tablet PO ONE (16:10)
[2022-06-11] MEDS ORDERED: POTASSIUM BICARB 20meq eff tab 20 MEQ TABLET.EFF PO SCH (16:35)
[2022-06-11 18:11] VITALS: BP 139/92
== END 2022-06-11 18:16 | disposition home or self-care (01) ==
LOC: ER 11:12
DX: K29.00 Acute gastritis without bleeding (principal); E87.6 Hypokalemia; R10.13 Epigastric pain; R11.2 Nausea with vomiting, unspecified; E78.00 Pure hypercholesterolemia, unspecified; I10 Essential (primary) hypertension; G89.29 Other chronic pain; F41.9 Anxiety disorder, unspecified; F32.A Depression, unspecified; Z90.710 Acquired absence of both cervix and uterus; Z98.890 Other specified postprocedural states; Z88.6 Allergy status to analgesic agent; Z88.5 Allergy status to narcotic agent; Z88.8 Allergy status to other drugs, medicaments and biological substances; Z79.899 Other long term (current) drug therapy
CPT/HCPCS: 36415; 71045; 74177; 80053; 83690; 83880; 84484; 85025; 96365; 96366; 96375; 96376; 99285; J0780; J2270; J2405; J3475; J3480; J3490; J7030; Q9967; 93005; 96368

== ENCOUNTER 2022-07-09 12:27 | Outpatient (CLI) | payer BC ==
[~2022-07-09 12:27] MED LIST changes: +MAG355OR18 PO; +PANT20TA18 PO
== END 2022-07-09 23:59 | disposition home or self-care (01) ==
LOC: RAD 12:27
PROVIDERS: ATTEND Physician Assistant
DX: E21.3 Hyperparathyroidism, unspecified (principal)
CPT/HCPCS: 76536

== ENCOUNTER 2022-07-11 15:11 | Outpatient (CLI) | payer OTHER | END 2022-07-11 23:59 | disposition home or self-care (01) | LOC: RAD 15:11 | PROVIDERS: ATTEND Chiropractor | DX: M47.812 Spondylosis without myelopathy or radiculopathy, cervical region (principal); M48.02 Spinal stenosis, cervical region; M50.223 Other cervical disc displacement at C6-C7 level; M43.12 Spondylolisthesis, cervical region; M99.01 Segmental and somatic dysfunction of cervical region; M60.9 Myositis, unspecified; M99.02 Segmental and somatic dysfunction of thoracic region; M25.512 Pain in left shoulder | CPT/HCPCS: 72141 ==

== ENCOUNTER 2022-07-25 16:10 | Outpatient (CLI) | payer BC ==
[~2022-07-25 16:10] MED LIST changes: -MAG355OR18 PO
== END 2022-07-25 23:59 | disposition home or self-care (01) ==
LOC: LAB 16:10
PROVIDERS: ATTEND Nurse Practitioner
DX: E21.3 Hyperparathyroidism, unspecified (principal)
CPT/HCPCS: 36415; 84439; 84443; 84480

== ENCOUNTER → 2022-09-08 | Outpatient (CLI) | payer BC | END | disposition home or self-care (01) | LOC: RAD 12:21 | PROVIDERS: ATTEND Physician Assistant | DX: E21.3 Hyperparathyroidism, unspecified (principal) | CPT/HCPCS: 78070; A9500 ==

== ENCOUNTER 2022-12-05 13:19 | Outpatient (CLI) | payer BC ==
[2022-12-05 15:41] LABS: HEMOGLOBIN A1C 5.3 % (4.5-6.2)
[2022-12-05 15:43] LABS: ALANINE AMINOTRANSFERASE 14 U/L (12-78); ALBUMIN 3.2 G/DL (3.4-5.0); ALBUMIN/GLOBULIN RATIO 0.9 (1.1-1.5); ALKALINE PHOSPHATASE 80 IU/L (46-116); ANION GAP 8 (8-16); ASPARTATE AMINO TRANSFERASE 12 U/L (10-37); BILIRUBIN,TOTAL 0.3 MG/DL (0.1-1.0); BLOOD UREA NITROGEN 9 MG/DL (7-18); BUN/CREATININE RATIO 11.1 (10.0-20.0); CALCIUM 9.4 MG/DL (8.5-10.1); CHLORIDE 104 MMOL/L (99-107); CREATININE 0.81 MG/DL (0.60-1.10); GLUCOSE 106 MG/DL (70-104); PHOSPHORUS 1.9 MG/DL (2.3-4.5); POTASSIUM 3.7 MMOL/L (3.5-5.1); SODIUM 139 MMOL/L (135-145); TOTAL PROTEIN 6.7 G/DL (6.4-8.2); eGFR > 90 ML/MIN
== END 2022-12-05 23:59 | disposition home or self-care (01) ==
LOC: RAD 13:19
PROVIDERS: ATTEND Internal Medicine Endocrinology, Diabetes & Metabolism
DX: E03.9 Hypothyroidism, unspecified (principal); E21.3 Hyperparathyroidism, unspecified; E55.9 Vitamin D deficiency, unspecified; R73.9 Hyperglycemia, unspecified
CPT/HCPCS: 36415; 80053; 82306; 83036; 83735; 84100; 84146; 84439; 84443

== ENCOUNTER 2022-12-29 08:16 | Outpatient (CLI) | payer BC ==
[2022-12-29 10:09] LABS: TOTAL VOLUME 24HRS,URINE 1525 ML
== END 2022-12-29 23:59 | disposition home or self-care (01) ==
LOC: LAB 08:16
PROVIDERS: ATTEND Internal Medicine Endocrinology, Diabetes & Metabolism
DX: E03.9 Hypothyroidism, unspecified (principal); E21.3 Hyperparathyroidism, unspecified; E55.9 Vitamin D deficiency, unspecified
CPT/HCPCS: 36415; 82570

== ENCOUNTER 2023-05-30 16:22 | Emergency (ER) | payer BC ==
[~2023-05-30] VITALS: Ht 157.5 cm; Wt 109.0 kg
[~2023-05-30 16:22] MED LIST changes: -LOSA100T57 PO; +LOSA100T58 PO
[2023-05-30] MEDS ORDERED: ondansetron/PF 4mg/2ml inj IV ONE (16:45)
[2023-05-30 17:13] LABS: BASOPHILS # (AUTO) 0.1 X10'3 (0-0.2); BASOPHILS % (AUTO) 0.5 % (0-1); EOSINOPHILS % (AUTO) 0.1 % (0-6); HEMATOCRIT 39.5 % (42.0-52.0); HEMOGLOBIN 13.3 g/dl (14.0-17.9); LYMPHOCYTES # (AUTO) 2.1 X10'3 (1.1-4.8); LYMPHOCYTES % (AUTO) 12.6 % (21-51); MEAN CORPUSCULAR HEMOGLOBIN 29.9 PG (27.0-31.0); MEAN CORPUSCULAR HGB CONC 33.7 g/dL (33.0-36.5); MEAN CORPUSCULAR VOLUME 88.5 FL (78-98); MONOCYTES # (AUTO) 0.9 X10'3 (0-0.9); MONOCYTES % (AUTO) 5.3 % (2-12); NEUTROPHILS # (AUTO) 13.3 X10'3 (1.8-7.7); NEUTROPHILS % (AUTO) 81.5 % (42-75); PLATELET COUNT 327 X10'3 (140-440); RED BLOOD COUNT 4.46 X10'6 (4.70-6.10); RED CELL DISTRIBUTION WIDTH 12.7 % (11.5-14.5); WHITE BLOOD COUNT 16.3 X10'3 (4.5-11.0)
[2023-05-30 17:29] LABS: ALANINE AMINOTRANSFERASE 26 U/L (12-78); ALBUMIN 3.3 G/DL (3.4-5.0); ALBUMIN/GLOBULIN RATIO 0.9 (1.1-1.5); ALKALINE PHOSPHATASE 93 IU/L (46-116); ANION GAP 7 (8-16); ASPARTATE AMINO TRANSFERASE 27 U/L (10-37); BILIRUBIN,TOTAL 0.3 MG/DL (0.1-1.0); BLOOD UREA NITROGEN 10 MG/DL (7-18); BUN/CREATININE RATIO 11.6 (10.0-20.0); CALCIUM 10.2 MG/DL (8.5-10.1); CHLORIDE 97 MMOL/L (99-107); CREATININE 0.86 MG/DL (0.60-1.10); GLUCOSE 125 MG/DL (70-104); POTASSIUM 3.3 MMOL/L (3.5-5.1); SODIUM 133 MMOL/L (135-145); TOTAL CARBON DIOXIDE 29.2 MMOL/L (24-32); eCRCL 65 ML/MIN; eGFR 89 ML/MIN
[2023-05-30 17:30] LABS: LIPASE 39 U/L (16-77)
[2023-05-30] MEDS ORDERED: ondansetron 4mg rapidly disintigrating tab PO ONE ×2 (18:35→22:10)
[2023-05-30] MEDS ORDERED: LIDOcaine Viscous 15ml cup MM ONE (18:35)
[2023-05-30] MEDS ORDERED: mag hydrox/Alum hydrox/simeth 30ml oral suspension PO ONE (18:35)
[2023-05-30] MEDS ORDERED: acetaminophen 1,000mg/100ml IV 100 ML IV STA (18:37)
[2023-05-30] MEDS ORDERED: famotidine/PF 10 mg/ml inj IV ONE (18:40)
[2023-05-30 18:41] VITALS: TEMP 97.1
[2023-05-30] MEDS ORDERED: iohexol 350MG/ML 100ml bottle IV ONE (19:46)
[2023-05-30 21:10] LABS: BILIRUBIN,URINE NEGATIVE (Neg); CLARITY,URINE CLEAR (Clear); COLOR,URINE STRAW (Yellow); GLUCOSE, URINE NEGATIVE (Neg); KETONES,URINE NEGATIVE (Neg); LEUKOCYTE ESTERASE ,URINE NEGATIVE (Neg); NITRITES, URINE NEGATIVE (Neg); OCCULT BLOOD,URINE TRACE-INTACT (Neg); PH,URINE 7.5 (4.8-8.0); PROTEIN,URINE NEGATIVE (Neg); UROBILINOGEN,URINE 0.2 E.U/dL (0.2-1.0)
[2023-05-30] MEDS ORDERED: NYST15PO4 TOP (21:18)
[2023-05-30] MEDS ORDERED: MONT-40 PO (21:18)
[2023-05-30 21:31] LABS: UA COLLECTION TYPE CLN CATCH MIDSTREAM
[2023-05-30 21:32] LABS: HYALINE CASTS 0-3 /LPF (NEGATIVE); MUCUS STRANDS FEW /LPF (Neg); SQUAMOUS EPITHELIAL CELL,UR FEW /LPF (FEW)
[2023-05-30 21:33] LABS: BACTERIA,URINE FEW /HPF (Neg); WBC,URINE NONE SEEN /HPF (0-4)
[2023-05-30 22:01] VITALS: BP 175/85; PULSE 98; RESP 16; O2SAT 98
[2023-05-30] MEDS ORDERED: ONDA4TAB12 PO ×2 (22:09)
== END 2023-05-30 22:18 | disposition home or self-care (01) ==
LOC: EDSEX → ER 16:23
DX: R10.9 Unspecified abdominal pain (principal); E78.00 Pure hypercholesterolemia, unspecified; I10 Essential (primary) hypertension; G89.29 Other chronic pain; M54.9 Dorsalgia, unspecified; F41.9 Anxiety disorder, unspecified; Z88.6 Allergy status to analgesic agent; Z88.2 Allergy status to sulfonamides; Z88.5 Allergy status to narcotic agent; Z88.8 Allergy status to other drugs, medicaments and biological substances
CPT/HCPCS: 36415; 71045; 71275; 74174; 80053; 81001; 83690; 84484; 85025; 93005; 96365; 96366; 96375; 99285; J0131; J2405; J3490; Q9967

== ENCOUNTER 2023-06-03 12:44 | Inpatient (IN) | payer BC ==
[~2023-06-03] VITALS: Ht 157.5 cm; Wt 109.0 kg
[~2023-06-03 12:44] MED LIST changes: -ALPR-624 PO; -BUPR300T86 PO; -CYCL-1 PO; -LOSA50TA64 PO; +MONT-40 PO; +NYST15PO4 TOP; +ONDA4TAB12 PO; -ONDA8TAB13 PO; -PANT20TA18 PO; -SUMA100T16 PO
[2023-06-03 13:20] LABS: BASOPHILS # (AUTO) 0.1 X10'3 (0-0.2); BASOPHILS % (AUTO) 0.8 % (0-1); EOSINOPHILS # (AUTO) 0.1 X10'3 (0-0.9); EOSINOPHILS % (AUTO) 0.9 % (0-6); HEMATOCRIT 42.8 % (42.0-52.0); HEMOGLOBIN 14.4 g/dl (14.0-17.9); LYMPHOCYTES # (AUTO) 2.3 X10'3 (1.1-4.8); LYMPHOCYTES % (AUTO) 15.6 % (21-51); MEAN CORPUSCULAR HEMOGLOBIN 29.7 PG (27.0-31.0); MEAN CORPUSCULAR HGB CONC 33.6 g/dL (33.0-36.5); MEAN CORPUSCULAR VOLUME 88.4 FL (78-98); MONOCYTES % (AUTO) 6.9 % (2-12); NEUTROPHILS # (AUTO) 11.1 X10'3 (1.8-7.7); NEUTROPHILS % (AUTO) 75.8 % (42-75); PLATELET COUNT 475 X10'3 (140-440); RED BLOOD COUNT 4.84 X10'6 (4.70-6.10); RED CELL DISTRIBUTION WIDTH 12.7 % (11.5-14.5); WHITE BLOOD COUNT 14.6 X10'3 (4.5-11.0)
[2023-06-03 13:36] LABS: ALANINE AMINOTRANSFERASE 17 U/L (12-78); ALBUMIN 3.1 G/DL (3.4-5.0); ALBUMIN/GLOBULIN RATIO 0.8 (1.1-1.5); ALKALINE PHOSPHATASE 95 IU/L (46-116); ANION GAP 5 (8-16); ASPARTATE AMINO TRANSFERASE 18 U/L (10-37); BILIRUBIN,TOTAL 0.5 MG/DL (0.1-1.0); BLOOD UREA NITROGEN 17 MG/DL (7-18); BUN/CREATININE RATIO 11.8 (10.0-20.0); CALCIUM 10.3 MG/DL (8.5-10.1); CHLORIDE 98 MMOL/L (99-107); CREATININE 1.44 MG/DL (0.60-1.10); GLUCOSE 124 MG/DL (70-104); POTASSIUM 3.3 MMOL/L (3.5-5.1); SODIUM 133 MMOL/L (135-145); TOTAL CARBON DIOXIDE 30.2 MMOL/L (24-32); eCRCL 39 ML/MIN; eGFR 49 ML/MIN
[2023-06-03] MEDS ORDERED: mag hydrox/Alum hydrox/simeth 30ml oral suspension PO ONE (13:40)
[2023-06-03] MEDS ORDERED: sucralfate 1 gm tablet PO ONE (13:40)
[2023-06-03] MEDS ORDERED: famotidine/PF 10 mg/ml inj IV ONE (13:40)
[2023-06-03] MEDS ORDERED: LIDOcaine Viscous 15ml cup MM ONE (13:40)
[2023-06-03 13:42] LABS: PRO BRAIN NATRIURETIC PEPTIDE 69 PG/ML (0-125)
[2023-06-03 14:05] LABS: LIPASE 28 U/L (16-77)
[2023-06-03] MEDS ORDERED: piperacillin/tazo 3.375gm/50ml 50 ML IV ONE (14:35)
[2023-06-03] MEDS ORDERED: ALBU6.7H14 PO (15:27)
[2023-06-03] MEDS ORDERED: LOSA100T58 PO (15:27)
[2023-06-03] MEDS ORDERED: ONDA4TAB12 PO (15:29)
[2023-06-03] MEDS ORDERED: HYDROcodone/acetaminophen 10/325mg tab PO PRN (15:30)
[2023-06-03] MEDS ORDERED: acetaminophen 325mg tablet PO PRN (15:30)
[2023-06-03] MEDS ORDERED: magnesium hydroxide 30ml (MOM) UD suspension PO PRN (15:30)
[2023-06-03] MEDS ORDERED: magnesium Cl slow-release 64mg tablet PO PRN (15:30)
[2023-06-03] MEDS ORDERED: HYDROcodone/acetaminophen 5mg/325mg tablet PO PRN (15:30)
[2023-06-03] MEDS ORDERED: morphine 2 MG/ML inj. syringe IV PRN (15:30)
[2023-06-03] MEDS ORDERED: magnesium 4gm in 100ml NS 100 ML IV PRN (15:30)
[2023-06-03] MEDS ORDERED: magnesium 2GM in 50ml NS 50 ML IV PRN (15:30)
[2023-06-03] MEDS ORDERED: mag hydrox/Alum hydrox/simeth 30ml oral suspension PO PRN (15:30)
[2023-06-03] MEDS ORDERED: potassium Cl 20 mEq SR tablet PO PRN (15:30)
[2023-06-03] MEDS ORDERED: potassium Cl 40MEQ/1/2NS 520ml 520 ML IV PRN (15:30)
[2023-06-03] MEDS ORDERED: ACET-1015 PO (15:32)
[2023-06-03] MEDS ORDERED: CHOL100017 PO (15:32)
[2023-06-03] MEDS: normal saline 1000ml 1,000 ML IV SCH ×2 (15:41→23:14)
[2023-06-03] MEDS: K and/or MAG REPLACEMENT MC SCH (20:00)
[2023-06-03] MEDS ORDERED: morphine 2 MG/ML inj. syringe IV ONE (20:05)
[2023-06-03] MEDS: potassium Cl 20 mEq SR tablet PO PRN (20:11)
[2023-06-03] MEDS: NYSTATIN 60 GM POWDER-BULK CONTAINER TP SCH (20:57)
--- NOTE | 2023-06-03 21:00 | NUR ---
Patient in room ORTHO 4015. I have received report from EMILY Torre RN and had the opportunity to ask questions and assume patient care.
--- NOTE | 2023-06-03 21:15 | NUR ---
pt arrived to floor via gurney, accompanied by er staff. oriented pt to room and call light. pt in stable condition. able to make needs known. will continue to monitor.
[2023-06-03] MEDS: ondansetron/PF 4mg/2ml inj IV PRN (21:22)
[2023-06-03 21:37] VITALS: BP 131/80; PULSE 90; RESP 17; TEMP 96.3; O2SAT 98
[2023-06-03] MEDS: piperacillin/tazo 3.375gm/50ml 50 ML IV SCH (23:14)
[2023-06-04] VITALS (22 sets, daily range): BP systolic 122–163; BP diastolic 58–92; PULSE 78–91; RESP 12–23; TEMP 96.8–98.2; O2SAT 92–97
[2023-06-04] MEDS: ondansetron/PF 4mg/2ml inj IV PRN ×2 (04:57→22:41)
[2023-06-04] MEDS: morphine 2 MG/ML inj. syringe IV PRN ×4 (04:58→22:44)
--- NOTE | 2023-06-04 06:20 | NUR ---
Problems reprioritized. Patient report given, questions answered & plan of care reviewed with NICOLASA Rojas.
--- NOTE | 2023-06-04 06:28 | NUR ---
Patient in room ORTHO 4015. I have received report from Bessy and had the opportunity to ask questions and assume patient care.
[2023-06-04 06:45] LABS: BASOPHILS % (AUTO) 0.5 % (0-1); EOSINOPHILS # (AUTO) 0.2 X10'3 (0-0.9); EOSINOPHILS % (AUTO) 2.2 % (0-6); HEMATOCRIT 39.1 % (35.0-45.0); HEMOGLOBIN 13.4 g/dl (12.0-16.0); LYMPHOCYTES # (AUTO) 2.3 X10'3 (1.1-4.8); LYMPHOCYTES % (AUTO) 21.6 % (21-51); MEAN CORPUSCULAR HEMOGLOBIN 30.2 PG (27.0-31.0); MEAN CORPUSCULAR HGB CONC 34.2 g/dL (33.0-36.5); MEAN CORPUSCULAR VOLUME 88.2 FL (78-98); MEAN PLATELET VOLUME 8.7 FL (7.4-10.4); MONOCYTES # (AUTO) 0.7 X10'3 (0-0.9); MONOCYTES % (AUTO) 6.3 % (2-12); NEUTROPHILS # (AUTO) 7.4 X10'3 (1.8-7.7); NEUTROPHILS % (AUTO) 69.4 % (42-75); PLATELET COUNT 428 X10'3 (140-440); RED BLOOD COUNT 4.43 X10'6 (4.20-5.60); WHITE BLOOD COUNT 10.7 X10'3 (4.5-11.0)
[2023-06-04 06:46] LABS: ALBUMIN 2.9 G/DL (3.4-5.0); ANION GAP 9 (8-16); BLOOD UREA NITROGEN 22 MG/DL (7-18); CALCIUM 9.9 MG/DL (8.5-10.1); CHLORIDE 99 MMOL/L (99-107); CREATININE 1.57 MG/DL (0.40-0.90); GLUCOSE 155 MG/DL (70-104); MAGNESIUM 2.1 MG/DL (1.5-2.4); POTASSIUM 3.1 MMOL/L (3.5-5.1); SODIUM 137 MMOL/L (135-145); TOTAL CARBON DIOXIDE 29.4 MMOL/L (24-32); eCRCL 28 ML/MIN; eGFR 33 ML/MIN
[2023-06-04] MEDS ORDERED: BUPIVAcaine/PF 2.5 mg/ml (0.25%) 30ml vial ONE (06:47)
--- NOTE | 2023-06-04 06:51 | NUR ---
pt to PASS
[2023-06-04] MEDS ORDERED: morphine 2 MG/ML inj. syringe IV PRN (07:00)
[2023-06-04] MEDS ORDERED: ondansetron/PF 4mg/2ml inj IV PRN (07:00)
[2023-06-04] MEDS ORDERED: ringers solution, lacted 1,000 ML IV SCH (07:00)
[2023-06-04] MEDS ORDERED: meperidine/PF 25mg/ml syringe IV PRN ×3 (07:00)
[2023-06-04] MEDS ORDERED: morphine 4 MG/ML inj SYRINge IV PRN (07:00)
[2023-06-04] MEDS ORDERED: proCHLORperazine 10 MG/2 ml inj IV PRN (07:00)
[2023-06-04] MEDS ORDERED: sevoflurane 250ml liquid IH ONE (07:04)
[2023-06-04] MEDS ORDERED: fentaNYL/PF 50MCG/1 ML 2ML syringe ONE (07:08)
[2023-06-04] MEDS ORDERED: midazolam 1 mg/ML 2ml injection ONE (07:09)
[2023-06-04] MEDS ORDERED: rocuronium 10mg/ml inj IV ONE (07:39)
[2023-06-04] MEDS ORDERED: dexamethasone sod phosphate 4mg/ml inj. ONE (07:39)
[2023-06-04] MEDS ORDERED: propofol inj 20 ML IV ONE (07:39)
[2023-06-04] MEDS ORDERED: ePHEDrine 50MG/ML INJ. ONE (07:39)
[2023-06-04] MEDS ORDERED: BUPIVAcaine/PF 2.5 mg/ml (0.25%) 30ml vial IJ ONE (07:58)
[2023-06-04] MEDS: NYSTATIN 60 GM POWDER-BULK CONTAINER TP SCH ×2 (08:00→20:00)
[2023-06-04] MEDS: montelukast 10mg tablet PO SCH (08:00)
[2023-06-04] MEDS: K and/or MAG REPLACEMENT MC SCH ×2 (08:00→20:00)
[2023-06-04] MEDS: piperacillin/tazo 3.375gm/50ml 50 ML IV SCH ×2 (08:00→23:36)
[2023-06-04] MEDS ORDERED: glycopyrrolate 0.2mg/ml inj ONE (08:15)
[2023-06-04] MEDS ORDERED: neostigmine methylsulfate 1 MG/ML 10ml vial ONE (08:15)
[2023-06-04] MEDS ORDERED: ondansetron/PF 4mg/2ml inj ONE (08:21)
[2023-06-04] MEDS ORDERED: sugammadex 200mg/2ml injection IV ONE (08:25)
--- NOTE | 2023-06-04 08:36 | NUR ---
Received from OR via , accompanied by Anesthesiologist DR PEDRAZA and report given by Anesthesiologist. PATIENT PRESENTS ON 12L VIA MASK, AROUSABLE TO VOICE BUT SLEEPY. NO S/S OF DISTRESS, V/S WNL, SCD ON , PIV 20G RUE, 4 LAPS SITES CDI TO ABDOMEN.
--- NOTE | 2023-06-04 08:40 | NUR ---
CLARIFIED THAT 0800 ZOSYN WAS ADMINISTERED IN THE OR - SPOKE WITH OR NURSE MONCADA
--- NOTE | 2023-06-04 09:15 | NUR ---
ICE APPLIED TO ABD, EDUCATION ON SPLINTING WHEN COUGHING, STRONG PRODUCTIVE DEEP BREATH AND COUGH
--- NOTE | 2023-06-04 10:17 | NUR ---
COMPLETE BED CHANGE FOR INC URINE - PT TOLERATED WELL
--- NOTE | 2023-06-04 10:26 | NUR ---
PT STABLE FOR TRANSFER BACK TO ROOM 4015B Addendum: 06/04/23 at 1047 by Meme Oshea RN PER ORDERS. REPORT CALLED TO PRIMARY NURSE SHAE. ALL QUESTIONS, COMMENTS, AND CONCERNS WERE ANSWERED AT THIS TIME. PT HOOKED UP TO POST OP VITALS AND CALL LIGHT WITHIN REACH, BLL, 2 RAILS UP. 4 ABD LAP SITES REMAINS CDI. PER PT, PAIN REMAINS TOLERABLE. PRIMARY NURSE AWARE OF TRANSFER.
[2023-06-04] MEDS: potassium Cl 20 mEq SR tablet PO PRN ×3 (11:06→19:14)
[2023-06-04] MEDS: FLUoxetine 20mg capsule PO SCH ×2 (11:07→11:12)
[2023-06-04] MEDS: levoTHYROXINE 88mcg tablet PO SCH (11:08)
[2023-06-04] MEDS: HYDROchlorothiazide 12.5mg capsule PO SCH (11:10)
[2023-06-04] MEDS: losartan 50mg tablet PO SCH (11:11)
[2023-06-04] MEDS: normal saline 1000ml 1,000 ML IV SCH (11:15)
--- NOTE | 2023-06-04 18:46 | NUR ---
Problems reprioritized. Patient report given, questions answered & plan of care reviewed with Althea Hightower.
--- NOTE | 2023-06-04 18:48 | NUR ---
Patient in room ORTHO 4015. I have received report from NICOLASA KAUFMAN and had the opportunity to ask questions and assume patient care.
[2023-06-05] MEDS: piperacillin/tazo 3.375gm/50ml 50 ML IV SCH ×3 (00:24→16:00)
[2023-06-05] MEDS: normal saline 1000ml 1,000 ML IV SCH ×3 (04:00→17:31)
[2023-06-05] MEDS: morphine 2 MG/ML inj. syringe IV PRN ×3 (04:36→20:13)
--- NOTE | 2023-06-05 06:17 | NUR ---
Patient in room ORTHO 4015. I have received report from Yasmin BALDWIN and had the opportunity to ask questions and assume patient care.
--- NOTE | 2023-06-05 06:18 | NUR ---
Problems reprioritized. Patient report given, questions answered & plan of care reviewed with NICOLASA VEGA.
[2023-06-05 06:53] LABS: BASOPHILS % (AUTO) 0.1 % (0-1); EOSINOPHILS % (AUTO) 0 % (0-6); HEMATOCRIT 38.6 % (35.0-45.0); HEMOGLOBIN 12.7 g/dl (12.0-16.0); LYMPHOCYTES # (AUTO) 1.7 X10'3 (1.1-4.8); LYMPHOCYTES % (AUTO) 9.8 % (21-51); MEAN CORPUSCULAR HEMOGLOBIN 29.5 PG (27.0-31.0); MEAN CORPUSCULAR HGB CONC 32.9 g/dL (33.0-36.5); MEAN CORPUSCULAR VOLUME 89.8 FL (78-98); MONOCYTES % (AUTO) 5.9 % (2-12); NEUTROPHILS # (AUTO) 14.4 X10'3 (1.8-7.7); NEUTROPHILS % (AUTO) 84.2 % (42-75); PLATELET COUNT 479 X10'3 (140-440); RED CELL DISTRIBUTION WIDTH 12.9 % (11.5-14.5); WHITE BLOOD COUNT 17.1 X10'3 (4.5-11.0)
[2023-06-05 07:11] LABS: ANION GAP 7 (8-16); BLOOD UREA NITROGEN 16 MG/DL (7-18); BUN/CREATININE RATIO 11.3 (10.0-20.0); CALCIUM 9.8 MG/DL (8.5-10.1); CHLORIDE 100 MMOL/L (99-107); CREATININE 1.41 MG/DL (0.40-0.90); GLUCOSE 128 MG/DL (70-104); MAGNESIUM 2.2 MG/DL (1.5-2.4); POTASSIUM 3.7 MMOL/L (3.5-5.1); SODIUM 135 MMOL/L (135-145); TOTAL CARBON DIOXIDE 27.6 MMOL/L (24-32); eCRCL 31 ML/MIN; eGFR 37 ML/MIN
[2023-06-05 08:00] VITALS: BP 142/73; PULSE 86; RESP 16; TEMP 97.8; O2SAT 97
[2023-06-05] MEDS: K and/or MAG REPLACEMENT MC SCH ×2 (08:00→20:00)
[2023-06-05] MEDS: HYDROchlorothiazide 12.5mg capsule PO SCH (08:50)
[2023-06-05] MEDS: montelukast 10mg tablet PO SCH (08:51)
[2023-06-05] MEDS: losartan 50mg tablet PO SCH (08:51)
[2023-06-05] MEDS: FLUoxetine 20mg capsule PO SCH (08:51)
[2023-06-05] MEDS: NYSTATIN 60 GM POWDER-BULK CONTAINER TP SCH ×2 (08:55→20:20)
[2023-06-05] MEDS: levoTHYROXINE 88mcg tablet PO SCH (08:56)
[2023-06-05 10:00] VITALS: BP 121/58; PULSE 106; RESP 16; TEMP 97.8; O2SAT 97
[2023-06-05] MEDS: ondansetron/PF 4mg/2ml inj IV PRN (14:04)
[2023-06-05 18:00] VITALS: BP 100/48; PULSE 88; RESP 15; TEMP 97.2; O2SAT 96
--- NOTE | 2023-06-05 18:23 | NUR ---
Problems reprioritized. Patient report given, questions answered & plan of care reviewed with Yasmin BALDWIN.
[2023-06-05] MEDS: heparin, porcine 5000 units/ml vial SQ SCH (20:12)
[2023-06-05 22:00] VITALS: BP 137/63; PULSE 88; RESP 16; TEMP 97.5; O2SAT 96
[2023-06-06] MEDS: piperacillin/tazo 3.375gm/50ml 50 ML IV SCH ×2 (00:01→08:36)
[2023-06-06] MEDS: morphine 2 MG/ML inj. syringe IV PRN ×2 (05:00→11:15)
[2023-06-06] MEDS: normal saline 1000ml 1,000 ML IV SCH (05:08)
[2023-06-06 06:00] VITALS: BP 117/66; PULSE 96; RESP 17; TEMP 97.8; O2SAT 94
[2023-06-06 06:06] LABS: BASOPHILS # (AUTO) 0.1 X10'3 (0-0.2); BASOPHILS % (AUTO) 0.6 % (0-1); EOSINOPHILS # (AUTO) 0.4 X10'3 (0-0.9); EOSINOPHILS % (AUTO) 3.7 % (0-6); HEMOGLOBIN 11.6 g/dl (12.0-16.0); LYMPHOCYTES # (AUTO) 3.7 X10'3 (1.1-4.8); LYMPHOCYTES % (AUTO) 38.3 % (21-51); MEAN CORPUSCULAR HEMOGLOBIN 30.8 PG (27.0-31.0); MEAN CORPUSCULAR HGB CONC 34.2 g/dL (33.0-36.5); MONOCYTES # (AUTO) 0.9 X10'3 (0-0.9); MONOCYTES % (AUTO) 9.2 % (2-12); NEUTROPHILS # (AUTO) 4.6 X10'3 (1.8-7.7); NEUTROPHILS % (AUTO) 48.2 % (42-75); PLATELET COUNT 342 X10'3 (140-440); RED BLOOD COUNT 3.78 X10'6 (4.20-5.60); RED CELL DISTRIBUTION WIDTH 13.1 % (11.5-14.5); WHITE BLOOD COUNT 9.6 X10'3 (4.5-11.0)
[2023-06-06 06:20] LABS: ALANINE AMINOTRANSFERASE 31 U/L (12-78); ALBUMIN 2.7 G/DL (3.4-5.0); ALBUMIN/GLOBULIN RATIO 0.8 (1.1-1.5); ALKALINE PHOSPHATASE 72 IU/L (46-116); ANION GAP 2 (8-16); ASPARTATE AMINO TRANSFERASE 37 U/L (10-37); BILIRUBIN,TOTAL 0.2 MG/DL (0.1-1.0); BLOOD UREA NITROGEN 18 MG/DL (7-18); BUN/CREATININE RATIO 15.5 (10.0-20.0); CALCIUM 9.9 MG/DL (8.5-10.1); CHLORIDE 106 MMOL/L (99-107); CREATININE 1.16 MG/DL (0.40-0.90); GLUCOSE 101 MG/DL (70-104); MAGNESIUM 1.9 MG/DL (1.5-2.4); POTASSIUM 3.7 MMOL/L (3.5-5.1); SODIUM 138 MMOL/L (135-145); TOTAL CARBON DIOXIDE 30.2 MMOL/L (24-32); TOTAL PROTEIN 6.1 G/DL (6.4-8.2); eCRCL 38 ML/MIN; eGFR 47 ML/MIN
--- NOTE | 2023-06-06 06:25 | NUR ---
Problems reprioritized. Patient report given, questions answered & plan of care reviewed with DONAVON ESQUIVEL.
[2023-06-06 08:00] VITALS: RESP 17; O2SAT 94
[2023-06-06] MEDS: K and/or MAG REPLACEMENT MC SCH (08:00)
[2023-06-06] MEDS: heparin, porcine 5000 units/ml vial SQ SCH (08:00)
[2023-06-06] MEDS: montelukast 10mg tablet PO SCH (08:05)
[2023-06-06] MEDS: FLUoxetine 20mg capsule PO SCH (08:05)
[2023-06-06] MEDS: HYDROchlorothiazide 12.5mg capsule PO SCH (08:05)
[2023-06-06] MEDS: levoTHYROXINE 88mcg tablet PO SCH (08:05)
[2023-06-06] MEDS: losartan 50mg tablet PO SCH (08:06)
[2023-06-06] MEDS: NYSTATIN 60 GM POWDER-BULK CONTAINER TP SCH (08:07)
[2023-06-06 10:00] VITALS: BP 114/61; PULSE 81; RESP 18; TEMP 97.9; O2SAT 97
[2023-06-06] MEDS ORDERED: OXYC-145 PO (12:37)
[2023-06-06 13:01] VITALS: RESP 17; O2SAT 94
--- NOTE | 2023-06-06 14:50 | NUR ---
Pt stable for discharge. Iv discontinued prior to d/c. Patient signed all discharge paperwork. Patient left with all personal belongings and was assisted out to her own personal vehicle by one staff member. Patient left in her personal vehicle, alone to go home. D/C @ 2913.
== END 2023-06-06 14:33 | disposition home or self-care (01) | DRG 419 ==
LOC: ER 12:44 → EDSEX 12:44 → ED HOLD 15:34 → EDBEDREQ 20:47 → ORTHO 4S 21:09
PROVIDERS: ADMIT Family Medicine; ATTEND Family Medicine
PROC: 0FT44ZZ Resection of Gallbladder, Percutaneous Endoscopic Approach (ICD-10-PCS; principal; 2023-06-04 07:04)
DX: K80.00 Calculus of gallbladder with acute cholecystitis without obstruction (principal); E78.00 Pure hypercholesterolemia, unspecified; F41.9 Anxiety disorder, unspecified; G89.29 Other chronic pain; F32.A Depression, unspecified; M54.9 Dorsalgia, unspecified; D72.829 Elevated white blood cell count, unspecified; I12.9 Hypertensive chronic kidney disease with stage 1 through stage 4 chronic kidney disease, or unspecified chronic kidney disease; N18.9 Chronic kidney disease, unspecified; E87.6 Hypokalemia; E11.22 Type 2 diabetes mellitus with diabetic chronic kidney disease; E83.52 Hypercalcemia; E86.0 Dehydration; E03.9 Hypothyroidism, unspecified; Z88.6 Allergy status to analgesic agent; Z88.5 Allergy status to narcotic agent; Z88.8 Allergy status to other drugs, medicaments and biological substances; Z95.1 Presence of aortocoronary bypass graft; Z79.899 Other long term (current) drug therapy; Z90.710 Acquired absence of both cervix and uterus; Z86.73 Personal history of transient ischemic attack (TIA), and cerebral infarction without residual deficits; Z98.891 History of uterine scar from previous surgery; I25.2 Old myocardial infarction
CPT/HCPCS: 96374; 99285; Z7506; Z7508; 36415; 71045; 76700; 80048; 80053; 82948; 83690; 83735; 83880; 84145; 84484; 85025; 86885; 86900; 86901; 87081; 93005; A4215; A4615; A4618; A7000; G0378; J1100; J1644; J2175; J2250; J2270; J2405; J2543; J2704; J2710; J3010; J3490; J7030; J7120

== ENCOUNTER 2023-07-30 15:41 | Outpatient (CLI) | payer BC ==
[~2023-07-30 15:41] MED LIST changes: +ACET-1015 PO; +ALBU6.7H14 PO; +CHOL100017 PO; -IPRA3AMP9 NEB; +OXYC-145 PO
== END 2023-07-30 23:59 | disposition home or self-care (01) ==
LOC: RAD 15:41
PROVIDERS: ATTEND Internal Medicine Endocrinology, Diabetes & Metabolism
DX: N20.0 Calculus of kidney (principal)
CPT/HCPCS: 76770

== ENCOUNTER 2024-08-12 15:40 | Outpatient (CLI) | payer BC ==
[~2024-08-12 15:40] MED LIST changes: +NYST15PO13 TOP; -NYST15PO4 TOP; +ONDA-243 PO; -ONDA4TAB12 PO
[2024-08-12 16:16] LABS: BASOPHILS # (AUTO) 0.1 X10'3 (0-0.2); BASOPHILS % (AUTO) 0.7 % (0-1); EOSINOPHILS # (AUTO) 0.3 X10'3 (0-0.9); EOSINOPHILS % (AUTO) 2.9 % (0-6); HEMOGLOBIN 13.9 g/dl (12.0-16.0); LYMPHOCYTES # (AUTO) 3.4 X10'3 (1.1-4.8); LYMPHOCYTES % (AUTO) 31.9 % (21-51); MEAN CORPUSCULAR HEMOGLOBIN 30.4 PG (27.0-31.0); MEAN CORPUSCULAR HGB CONC 34.6 g/dL (33.0-36.5); MEAN CORPUSCULAR VOLUME 87.7 FL (78-98); MEAN PLATELET VOLUME 7.8 FL (7.4-10.4); MONOCYTES # (AUTO) 0.7 X10'3 (0-0.9); MONOCYTES % (AUTO) 6.6 % (2-12); NEUTROPHILS # (AUTO) 6.2 X10'3 (1.8-7.7); NEUTROPHILS % (AUTO) 57.9 % (42-75); PLATELET COUNT 408 X10'3 (140-440); RED BLOOD COUNT 4.56 X10'6 (4.20-5.60); RED CELL DISTRIBUTION WIDTH 12.6 % (11.5-14.5); WHITE BLOOD COUNT 10.7 X10'3 (4.5-11.0)
[2024-08-12 16:23] LABS: ALANINE AMINOTRANSFERASE 21 U/L (12-78); ALBUMIN 3.2 G/DL (3.4-5.0); ALBUMIN/GLOBULIN RATIO 0.9 (1.1-1.5); ALKALINE PHOSPHATASE 73 IU/L (46-116); ANION GAP 10 (8-16); ASPARTATE AMINO TRANSFERASE 17 U/L (10-37); BILIRUBIN,TOTAL 0.2 MG/DL (0.1-1.0); BLOOD UREA NITROGEN 14 MG/DL (7-18); BUN/CREATININE RATIO 14.6 (10.0-20.0); CALCIUM 10.2 MG/DL (8.5-10.1); CHLORIDE 101 MMOL/L (99-107); CREATININE 0.96 MG/DL (0.40-0.90); GLUCOSE 115 MG/DL (70-104); LIPASE 59 U/L (16-77); POTASSIUM 3.2 MMOL/L (3.5-5.1); SODIUM 140 MMOL/L (135-145); TOTAL PROTEIN 6.7 G/DL (6.4-8.2); eGFR 58 ML/MIN
== END 2024-08-12 23:59 | disposition home or self-care (01) ==
LOC: LAB 15:40
PROVIDERS: ATTEND Nurse Practitioner Family
DX: R10.13 Epigastric pain (principal); K57.90 Diverticulosis of intestine, part unspecified, without perforation or abscess without bleeding; Z90.49 Acquired absence of other specified parts of digestive tract
CPT/HCPCS: 36415; 80053; 83690; 85025

== ENCOUNTER 2024-11-18 16:13 | Outpatient (CLI) | payer BC ==
[2024-11-18 17:07] LABS: BILIRUBIN,URINE NEGATIVE (Neg); CLARITY,URINE CLEAR (Clear); COLOR,URINE YELLOW (Yellow); GLUCOSE, URINE NEGATIVE (Neg); KETONES,URINE NEGATIVE (Neg); LEUKOCYTE ESTERASE ,URINE NEGATIVE (Neg); NITRITES, URINE NEGATIVE (Neg); OCCULT BLOOD,URINE TRACE-INTACT (Neg); PROTEIN,URINE NEGATIVE (Neg); UROBILINOGEN,URINE 0.2 E.U/dL (0.2-1.0)
[2024-11-18 17:08] LABS: BASOPHILS # (AUTO) 0.1 X10'3 (0-0.2); BASOPHILS % (AUTO) 0.6 % (0-1); EOSINOPHILS # (AUTO) 0.2 X10'3 (0-0.9); EOSINOPHILS % (AUTO) 2.1 % (0-6); HEMATOCRIT 40.5 % (35.0-45.0); HEMOGLOBIN 14.3 g/dl (12.0-16.0); LYMPHOCYTES # (AUTO) 3.4 X10'3 (1.1-4.8); LYMPHOCYTES % (AUTO) 33.6 % (21-51); MEAN CORPUSCULAR HEMOGLOBIN 30.5 PG (27.0-31.0); MEAN CORPUSCULAR HGB CONC 35.2 g/dL (33.0-36.5); MEAN CORPUSCULAR VOLUME 86.5 FL (78-98); MEAN PLATELET VOLUME 8.3 FL (7.4-10.4); MONOCYTES # (AUTO) 0.6 X10'3 (0-0.9); MONOCYTES % (AUTO) 6.4 % (2-12); NEUTROPHILS # (AUTO) 5.7 X10'3 (1.8-7.7); NEUTROPHILS % (AUTO) 57.3 % (42-75); PLATELET COUNT 362 X10'3 (140-440); RED BLOOD COUNT 4.69 X10'6 (4.20-5.60); RED CELL DISTRIBUTION WIDTH 12.8 % (11.5-14.5)
[2024-11-18 17:09] LABS: UA COLLECTION TYPE CLN CATCH MIDSTREAM
[2024-11-18 17:15] LABS: BACTERIA,URINE FEW /HPF (Neg); HYALINE CASTS 0-3 /LPF (NEGATIVE); MUCUS STRANDS MODERATE /LPF (Neg); SQUAMOUS EPITHELIAL CELL,UR MANY /LPF (FEW)
[2024-11-18 17:48] LABS: ALANINE AMINOTRANSFERASE 31 U/L (12-78); ALBUMIN 3.3 G/DL (3.4-5.0); ALBUMIN/GLOBULIN RATIO 0.9 (1.1-1.5); ALKALINE PHOSPHATASE 73 IU/L (46-116); ANION GAP 8 (8-16); ASPARTATE AMINO TRANSFERASE 24 U/L (10-37); BILIRUBIN,TOTAL 0.4 MG/DL (0.1-1.0); BLOOD UREA NITROGEN 12 MG/DL (7-18); BUN/CREATININE RATIO 11.4 (10.0-20.0); CALCIUM 9.6 MG/DL (8.5-10.1); CHLORIDE 102 MMOL/L (99-107); CREATININE 1.05 MG/DL (0.40-0.90); GLUCOSE 113 MG/DL (70-104); LIPASE 49 U/L (16-77); SODIUM 139 MMOL/L (135-145); TOTAL CARBON DIOXIDE 28.7 MMOL/L (24-32); eGFR 52 ML/MIN
[2024-11-19 18:07] LABS: POTASSIUM 2.6 MMOL/L (3.5-5.1)
== END 2024-11-18 23:59 | disposition home or self-care (01) ==
LOC: LAB 16:13
PROVIDERS: ATTEND Nurse Practitioner Family
DX: R10.13 Epigastric pain (principal); K57.90 Diverticulosis of intestine, part unspecified, without perforation or abscess without bleeding; Z90.49 Acquired absence of other specified parts of digestive tract; K52.9 Noninfective gastroenteritis and colitis, unspecified; N18.30 Chronic kidney disease, stage 3 unspecified
CPT/HCPCS: 80053; 81001; 83690; 85025; 86255